=== PATIENT | male | born 1950 | race Caucasian/White ===

== ENCOUNTER 2017-04-23 11:02 | Emergency (ER) | payer MEDICARE, MEDICAID ==
[~2017-04-23] VITALS: Ht 167.6 cm; Wt 100.0 kg
[~2017-04-23 11:02] MED LIST: AMLO-511 PO; ASPI-1182 PO; ASPI-556 PO; ATOR20TA65 PO; FISH1CAP63 PO; LOSA50TA2 PO; METO25XL PO; TAMS0.4C32 PO; VITAD5000 PO
[2017-04-23 11:32] LABS: APPEARANCE,URINE CLEAR (CLEAR); BILIRUBIN,URINE NEGATIVE (NEGATIVE); GLUCOSE, URINE (UA) NEGATIVE (NEGATIVE); KETONES,URINE NEGATIVE (NEGATIVE); LEUKOCYTE ESTERASE ,URINE NEGATIVE (NEGATIVE); NITRATE,URINE NEGATIVE (NEGATIVE); OCCULT BLOOD,URINE NEGATIVE (NEGATIVE); PH,URINE 5.5 (5.0-8.0); PROTEIN,URINE NEGATIVE (NEGATIVE); UROBILINOGEN,URINE 0.2 mg/dL (<=1.0)
[2017-04-23 11:33] LABS: BACTERIA,URINE None Seen /HPF (None Seen); RBC,URINE None Seen /HPF (0-2); WBC,URINE None Seen /HPF (0-5)
[2017-04-23 12:01] LABS: INFLUENZA TYPE A POSITIVE FOR TYPE A (NEGATIVE); INFLUENZA TYPE B NEGATIVE FOR TYPE B (NEGATIVE)
[2017-04-23 12:32] VITALS: BP 142/82
[2017-04-23] MEDS ORDERED: IBUPROFEN 800 MG TABLET PO ONE (13:15)
== END 2017-04-23 13:08 | disposition home or self-care (01) ==
LOC: EMS 11:04
DX: J11.1 Influenza due to unidentified influenza virus with other respiratory manifestations (principal); J40 Bronchitis, not specified as acute or chronic; I10 Essential (primary) hypertension
CPT/HCPCS: 87804; 99284

== ENCOUNTER 2018-10-12 18:53 | Emergency (ER) | payer MEDICARE, MEDICAID ==
[~2018-10-12] VITALS: Ht 165.1 cm; Wt 97.7 kg
[~2018-10-12 18:53] MED LIST changes: -AMLO-511 PO; +AMLO5TAB9 PO
[2018-10-12] MEDS ORDERED: KETOROLAC TROMETHAMINE 10 MG TABLET PO ONE (19:30)
[2018-10-12 21:56] VITALS: BP 135/81
== END 2018-10-12 22:10 | disposition home or self-care (01) ==
LOC: EMS 18:54
DX: S93.492A Sprain of other ligament of left ankle, initial encounter (principal); I10 Essential (primary) hypertension; Z98.890 Other specified postprocedural states; Z79.899 Other long term (current) drug therapy; Z79.82 Long term (current) use of aspirin; X50.1XXA Overexertion from prolonged static or awkward postures, initial encounter; Y93.01 Activity, walking, marching and hiking; Y92.89 Other specified places as the place of occurrence of the external cause; Y99.8 Other external cause status
CPT/HCPCS: 29515

== ENCOUNTER 2019-02-24 09:43 | Emergency (ER) | payer MEDICARE, MEDICAID ==
[~2019-02-24] VITALS: Ht 170.2 cm; Wt 86.4 kg
[2019-02-24 11:08] VITALS: BP 139/89
[2019-02-24] MEDS ORDERED: GuaiFENesin/D-METHORPHAN [SUGAR-FREE] 200-20MG/10 ML SYRUP UDCUP PO ONE (11:15)
[2019-02-24] MEDS ORDERED: TAMS-13 PO (11:24)
[2019-02-24] MEDS ORDERED: CHOL50004 PO (11:24)
== END 2019-02-24 11:33 | disposition home or self-care (01) ==
LOC: EMS 09:46
DX: J40 Bronchitis, not specified as acute or chronic (principal); I10 Essential (primary) hypertension; Z79.82 Long term (current) use of aspirin

== ENCOUNTER 2019-03-11 05:58 | Emergency (ER) | payer MEDICARE, MEDICAID ==
[~2019-03-11] VITALS: Ht 165.1 cm; Wt 95.5 kg
[~2019-03-11 05:58] MED LIST changes: -ASPI-1182 PO; +CHOL50004 PO; +TAMS-13 PO; -TAMS0.4C32 PO; -VITAD5000 PO
[2019-03-11] MEDS ORDERED: UNK BP MED PO (06:19)
[2019-03-11 08:00] VITALS: BP 152/95
[2019-03-11 08:05] LABS: BASOPHILS % (AUTO) 0.5 % (0.0-2.0); EOSINOPHILS % (AUTO) 2.4 % (1.0-6.0); HEMATOCRIT 41.9 % (41-53); HEMOGLOBIN 14.2 g/dL (13.5-17.5); LYMPHOCYTES # (AUTO) 1.4 K/uL (1.0-4.8); LYMPHOCYTES % (AUTO) 29.7 % (22.0-44.0); MEAN CORPUSCULAR HEMOGLOBIN 31.2 pg (26.0-34.0); MEAN CORPUSCULAR HGB CONC 33.9 G/dL (31.0-37.0); MEAN CORPUSCULAR VOLUME 92 fL (80-100); MONOCYTES # (AUTO) 0.3 K/uL (0.1-1.0); MONOCYTES % (AUTO) 7.3 % (2.0-9.0); NEUTROPHILS # (AUTO) 2.8 K/uL (1.8-7.7); NEUTROPHILS % (AUTO) 60.1 % (40.0-70.0); PLATELET COUNT (AUTO) 257 K/uL (150-450); RED BLOOD CELL COUNT(AUTO) 4.57 MIL/uL (4.50-5.90); RED CELL DISTRIBUTION WIDTH 14.2 % (11.5-14.5)
[2019-03-11 08:12] LABS: ANION GAP 8 mmol/L (8-16); CALCIUM, TOTAL 8.7 mg/dL (8.8-10.5); CARBON DIOXIDE 29 mmol/L (22-29); CHLORIDE 102 mmol/L (98-107); CREATININE 0.92 mg/dL (0.60-1.30); GLOMERULAR FILTR. RATE CALC > 60 mL/min (>60); GLUCOSE,RANDOM 118 mg/dL (70-110); POTASSIUM 4.6 mmol/L (3.5-5.1); SODIUM SERUM 139 mmol/L (136-145); UREA NITROGEN, BLOOD 18 mg/dL (7-18)
== END 2019-03-11 08:34 | disposition home or self-care (01) ==
LOC: EMS 05:58
DX: I10 Essential (primary) hypertension (principal); Z98.890 Other specified postprocedural states; Z79.899 Other long term (current) drug therapy
CPT/HCPCS: 93005

== ENCOUNTER 2021-06-15 21:56 | Emergency (ER) | payer MEDICAID ==
[~2021-06-15] VITALS: Ht 165.1 cm; Wt 95.9 kg
[~2021-06-15 21:56] MED LIST changes: +AMLO-257 PO; -AMLO5TAB9 PO; -ASPI-556 PO; -ATOR20TA65 PO; -CHOL50004 PO; -FISH1CAP63 PO; -METO25XL PO; -TAMS-13 PO; +UNK BP MED PO
[2021-06-15] MEDS ORDERED: ATOR10TA84 PO (22:30)
[2021-06-15] MEDS ORDERED: CLON0.1T2 PO (22:30)
[2021-06-16 01:08] VITALS: BP 132/84
== END 2021-06-16 01:18 | disposition home or self-care (01) ==
LOC: EMS 22:04
DX: I10 Essential (primary) hypertension (principal); E78.00 Pure hypercholesterolemia, unspecified; Z87.09 Personal history of other diseases of the respiratory system; Z98.890 Other specified postprocedural states
CPT/HCPCS: 99281; Z7502